=== PATIENT | female | born 1985 | race Two or more races ===

== ENCOUNTER → 2019-05-18 | Outpatient (CLI) | payer BC ==
[2016-12-26 07:50] VITALS: BMI 26.1
[~2019-05-18] MED LIST: ACET-1718 PO; BUS5 PO; DOCU-416 PO; ESCI20TA38 PO; IBUP800T37 PO; METO-733 PO; MONT10TA PO; NO ROUTINE MEDS; OXYC-865 PO; PER PO; PREN1TAB44
== END ==
LOC: LAB 14:10
PROVIDERS: ATTEND Emergency Medicine
DX: E83.19 Other disorders of iron metabolism (principal); R20.8 Other disturbances of skin sensation; R10.819 Abdominal tenderness, unspecified site
CPT/HCPCS: 36415; 81001; 82306; 82607; 82728; 83540; 83550; 87338